=== PATIENT | male | born 1955 | race African-American/Black ===

== ENCOUNTER 2018-04-17 09:22 | Day surgery (SDC) | payer OTHER ==
[2018-04-17] MEDS ORDERED: LIDOCAINE 2% (SDV) 5 ML INJ (11:23)
[2018-04-17] MEDS ORDERED: PROPOFOL 20 ML (11:23)
[2018-04-17] MEDS ORDERED: ONDANSETRON 4 MG INJ (11:25)
[2018-04-17] MEDS ORDERED: CEFAZOLIN 1 GM INJ (11:25)
[2018-04-17] MEDS: BUPIVACAINE 0.5% (SDV) 30 ML INJ (11:48)
[2018-04-17] MEDS: POVIDONE IODINE 10% 28.4 GM OINT (11:58)
[2018-04-17] MEDS ORDERED: hydrALAzine 20 MG INJ IV (12:00)
[2018-04-17] MEDS ORDERED: EPHEDrine SULFATE 50 MG/5 ML SYG IV (12:00)
[2018-04-17] MEDS ORDERED: OXYCODONE/ACETAMINOPHEN (5/325) TAB PO ×2 (12:00)
[2018-04-17] MEDS ORDERED: MIDAZOLAM 1 MG/ML 2 ML INJ IV (12:00)
[2018-04-17] MEDS ORDERED: LABETALOL HCL 20MG INJ IV (12:00)
[2018-04-17] MEDS ORDERED: MEPERIDINE 25 MG INJ IV (12:00)
[2018-04-17] MEDS ORDERED: FENTAnyl 50 MCG/ML VIAL IV ×3 (12:00)
[2018-04-17] MEDS ORDERED: DIPHENHYDRAMINE 50 MG INJ IV (12:00)
[2018-04-17] MEDS ORDERED: METOCLOPRAMIDE 10 MG INJ IV (12:00)
[2018-04-17] MEDS ORDERED: ONDANSETRON 4 MG INJ IV (12:00)
== END 2018-04-17 14:43 | disposition home or self-care (01) ==
LOC: SDS 09:22
DX: M20.41 Other hammer toe(s) (acquired), right foot (principal); I10 Essential (primary) hypertension; E78.5 Hyperlipidemia, unspecified
CPT/HCPCS: 28285; 84132